=== PATIENT | male | born 1950 | race Hispanic/Latino ===

== ENCOUNTER 2016-07-04 22:52 | Emergency (ER) | payer OTHER ==
[~2016-07-04] VITALS: Ht 175.3 cm; Wt 81.6 kg
--- NOTE | 2016-07-05 01:36 | ED UPPER/LOWER EXTREMITY COMPL ---
History of Present Illness General Chief Complaint: Lower Extremity Problems Stated Complaint: L LEG PAIN AND SWELLING Source: patient, old records Exam Limitations: no limitations Vital Signs & Intake/Output Vital Signs & Intake/Output Vital Signs Date Time Temp Pulse Resp B/P Pulse O2 O2 Flow FiO2 Ox Delivery Rate 07/05 0132 Room Air 07/04 2307 98.1 87 18 161/86 96 Room Air ED Intake and Output 07/05 0000 07/04 1200 Intake Total Output Total Balance Patient 180 lb Weight Allergies Uncoded Allergies: shellfish (Severe, LIPS AND THROAT SWELLING 07/04/16) Triage Note: PT TO TRIAGE WITH C/O SWELLING AND WARMTH TO L CALF, PAIN 7/10 ON PALPATION [id number], GETTING WORSE. NO OTHER COMPLAINTS. DENIES INJURY. HX OF HTN, HIGH CHOL, ARTHRITIS. VSS. Triage Nurses Notes Reviewed? yes HPI: Patient presents with left lower extremity swelling for the past week. This has been constant. There is no increase in swelling. There is no chest pain or shortness of breath. Patient kept thinking that the swelling would go away but when it didn't he finally came in to get checked out. Patient denies any pain. There are no nausea or vomiting. There is no known trauma. Past History Travel History Traveled to [place] past 21 day No Medical History Any Pertinent Medical History? see below for history Cardiovascular: hypertension, hyperlipidemia Gastrointestinal: GERD Musculoskeletal: osteoarthritis Surgical History Surgical History: non-contributory Psychosocial History What is your primary language Mongolian Tobacco Use: Never used ETOH Use: denies use Illicit Drug Use: denies illicit drug use Family History Hx Contributory? No Review of Systems Review of Systems Constitutional: Reports: no symptoms. EENTM: Reports: no symptoms. Respiratory: Reports: no symptoms. Cardiovascular: Reports: no symptoms. Gastrointestinal/Abdominal: Reports: no symptoms. Genitourinary: Reports: no symptoms. Musculoskeletal: Reports: see HPI. Skin: Reports: no symptoms. Neurological/Psychological: Reports: no symptoms. Hematologic/Endocrine: Reports: no symptoms. Immunological: Reports: no symptoms. All Other Systems: Reviewed and Negative Physical Exam Physical Exam General Appearance: well developed/nourished, alert, awake, anxious, mild distress Head: atraumatic, normal appearance Eyes: Bilateral: PERRL, EOMI. Ears, Nose, Throat: normal pharynx, normal ENT inspection, hearing grossly normal Neck: normal inspection, supple, full range of motion Cardiovascular/Respiratory: normal breath sounds, normal peripheral pulses, regular rate/rhythm, no respiratory distress Peripheral Pulses: 3+ tibialis posterior (R), 3+ tibialis posterior (L), 3+ dorsalis pedis (R), 3+ dorsalis pedis (L) Back: normal inspection, normal range of motion Leg Left: swelling (1+) Neurologic/Tendon: normal sensation, normal tendon functions Skin: intact, normal color, warm/dry Progress Differential Diagnosis: DVT, Watters'S CYST Plan of Care: Current Medications Sig/Kalyan Start time Last Medication Dose Stop Time Status Admin Enoxaparin Sodium 120 MG ONCE ONE 07/05 144 UNVr (Lovenox) 07/05 145 Departure Departure Disposition: HOME OR SELF CARE Condition: Stable Clinical Impression Primary Impression: Left leg swelling Referrals: JOB KRISHNA,MELCHOR Stephens (PCP/Family) Additional Instructions: HAVE ULTRASOUND IN THE MORNING RETURN FOR ANY CHEST PAIN, SHORTNESS OF BREATH OR ANY CONCERNS Departure Forms: Customer Survey General Discharge Information
[2016-07-05 01:58] VITALS: BP 152/78
== END 2016-07-05 01:59 ==
LOC: ERH 22:52
DX: M79.89 Other specified soft tissue disorders (principal)
CPT/HCPCS: 96372; J1650